=== PATIENT | male | born 1975 | race African-American/Black ===

== ENCOUNTER 2016-10-08 15:53 | Emergency (ER) | payer OTHER ==
[2016-10-08 16:55] LABS: #Lymphocytes 1.7 thou/uL (1.20-3.40); #Monocytes 0.5 thou/uL (0.11-0.59); %Basophils 0.6 % (0.0-1.0); %Eosinophils 0.6 % (0.0-10.0); %Lymphocytes 26.9 % (21.0-51.0); %Monocytes 7.9 % (0.0-10.0); Hematocrit 42.4 % (42.0-52.0); Red Blood Cell (RBC) Count 5.14 mill/uL (4.70-6.10); White Blood Cell (WBC) Count 6.3 thou/uL (4.8-10.8)
--- NOTE | 2016-10-08 17:07 | RAD ---
CHEST ONE VIEW 10/08/16 HISTORY: Chest pain. COMPARISON: 08/29/15. FINDINGS: The cardiac silhouette is magnified by projection. Pulmonary vasculature is unremarkable. Mediastinu m is midline. There is no confluent air space consolidation, or evidence of pneumothorax. IMPRESSION: No active cardiopulmonary abnormalities are demonstrated. POS: [facility]
[2016-10-08 17:09] LABS: Troponin I Less than 0.010 ng/mL (< 0.028)
[2016-10-08 17:10] LABS: ALT (SGPT) 16 U/L (0-55); AST (SGOT) 17 U/L (5-34); Alkaline Phosphatase 71 U/L (40-150); Anion Gap 15 mmol/L (10-20); BUN (Urea Nitrogen) 11 mg/dL (8.9-20.6); Bilirubin, Total 0.5 mg/dL (0.2-1.2); Calc. Creatinine Clearance 0 mL/min (70-130); Calcium 9.5 mg/dL (7.8-10.44); Carbon Dioxide 25 mmol/L (22-29); Chloride 104 mmol/L (98-107); Estimated GFR-MDRD Greater than 90; Protein, Total 7.3 g/dL (6.0-8.3)
== END 2016-10-08 17:56 | disposition home or self-care (01) ==
LOC: NAV ERS 15:53
DX: R07.89 Other chest pain (principal); J45.909 Unspecified asthma, uncomplicated; F32.9 Major depressive disorder, single episode, unspecified
CPT/HCPCS: 71010; 80053; 82553; 84484; 85025

== ENCOUNTER 2016-11-08 19:29 | Emergency (ER) | payer OTHER | END 2016-11-08 20:35 | disposition home or self-care (01) | LOC: NAV ERS 19:29 | DX: F41.9 Anxiety disorder, unspecified (principal); J45.909 Unspecified asthma, uncomplicated; F32.9 Major depressive disorder, single episode, unspecified | CPT/HCPCS: 99283 ==

== ENCOUNTER 2021-09-22 10:57 | Emergency (ER) | payer BC ==
[2021-09-22] MEDS ORDERED: Acetaminophen 325 MG TAB ONE (11:41)
[2021-09-22 21:48] LABS: SARS-CoV-2 PCR by NAA DETECTED (NotDetected)
== END 2021-09-22 12:18 | disposition home or self-care (01) ==
LOC: NAV ERS 10:57
DX: U07.1 COVID-19 (principal); J06.9 Acute upper respiratory infection, unspecified; J45.909 Unspecified asthma, uncomplicated; G47.30 Sleep apnea, unspecified
CPT/HCPCS: 87804; 99283; U0003; U0005

== ENCOUNTER 2023-08-27 10:28 | Emergency (ER) | payer BC ==
[2023-08-27] MEDS ORDERED: Ibuprofen 800 MG TAB ONE (11:00)
== END 2023-08-27 11:20 | disposition home or self-care (01) ==
LOC: NAV ERS 10:28
DX: S93.402A Sprain of unspecified ligament of left ankle, initial encounter (principal); E78.00 Pure hypercholesterolemia, unspecified; Z79.899 Other long term (current) drug therapy; X50.1XXA Overexertion from prolonged static or awkward postures, initial encounter

== ENCOUNTER 2024-12-17 14:00 | Emergency (ER) | payer BC ==
[2024-12-17] MEDS ORDERED: Aspirin Chewable 81 MG TAB ONE (15:10)
[2024-12-17 15:12] LABS: #Eosinophils 0.1 thou/uL (0.0-0.7); #Lymphocytes 1.5 thou/uL (1.20-3.40); #Monocytes 0.4 thou/uL (0.11-0.59); #Neutrophils 3.6 thou/uL (1.40-6.50); %Basophils 0.8 % (0.0-1.0); %Eosinophils 2.2 % (0.0-10.0); %Lymphocytes 26.5 % (21.0-51.0); %Monocytes 7.2 % (0.0-10.0); %Neutrophils 63.4 % (42.0-75.0); Hematocrit 43.6 % (42.0-52.0); Hemoglobin 13.8 g/dL (14.0-18.0); Mean Corpuscular HGB CONC 31.7 g/dL (32.0-36.0); Mean Corpuscular Hemoglobin 25.6 pg (27.0-31.0); Mean Corpuscular Volume 80.6 fl (78.0-98.0); Mean Platelet Volume 8.1 fL (7.4-10.4); Platelet Count 154 10x3/uL (130-400); RBC Distribution Width 13.2 % (11.5-14.5); Red Blood Cell (RBC) Count 5.41 mill/uL (4.70-6.10); White Blood Cell (WBC) Count 5.7 10x3/uL (4.8-10.8)
[2024-12-17 15:23] LABS: ALT (SGPT) 22 U/L (Less than 45); AST (SGOT) 20 U/L (11-34); Alkaline Phosphatase 80 U/L (40-110); Anion Gap 14 mmol/L (10-20); BUN (Urea Nitrogen) 11 mg/dL (8.9-20.6); Bilirubin, Total 0.4 mg/dL (0.3-1.2); Calc. Creatinine Clearance 0 mL/min (70-130); Calcium 9.5 mg/dL (7.8-10.44); Carbon Dioxide 24 mmol/L (22-29); Chloride 107 mmol/L (98-107); Estimated GFR 95; Glucose 113 mg/dL (70-105); Potassium 3.8 mmol/L (3.5-5.1); Sodium 141 mmol/L (136-145)
[2024-12-17 15:25] LABS: Troponin I Less than 0.010 ng/mL (< 0.028)
[2024-12-17 18:15] LABS: Troponin I Less than 0.010 ng/mL (< 0.028)
== END 2024-12-17 18:35 | disposition home or self-care (01) ==
LOC: NAV ERS 14:00
DX: R07.9 Chest pain, unspecified (principal); M54.6 Pain in thoracic spine; J45.909 Unspecified asthma, uncomplicated; E78.2 Mixed hyperlipidemia; Z79.899 Other long term (current) drug therapy
CPT/HCPCS: 71045; 80053; 84484; 85025; 93005; 94760